=== PATIENT | male | born 1960 | race Caucasian/White ===

== ENCOUNTER 2016-08-31 09:27 | Day surgery (SDC) | payer BC ==
[2016-08-27 10:31] VITALS: BMI 29.6
[~2016-08-31 09:27] MED LIST: LACTATED RINGERS 1,000 ML IV SCH; LIDOCAINE 1% 20 ML VIAL (10MG/ML) FOR IV START INTRADERMA PRN
[2016-08-31 10:12] VITALS: RESP 18; TEMP 97.8
[2016-08-31 10:21] LABS: Glucose,Whole Blood 95 mg/dL (75-99)
[2016-08-31] MEDS ORDERED: PROPOFOL 10 MG/ML 20 ML VIAL IV ONE (10:43)
--- NOTE | 2016-08-31 11:22 | P.PCN ---
Date of Procedure: 08/31/16 Preoperative Diagnosis: Postoperative Diagnosis: Procedure(s) Performed: Procedure: Colonoscopy and polypectomy. Preoperative diagnosis: Screening for neoplasia, patient has history of polyps. Postoperative diagnosis: 1. Small polyp around the hepatic flexure snared but no large polyps or cancer. 2. Sigmoid diverticulosis with no evidence of acute diverticulitis or strictures. Preparation: HalfLytely prep. Sedation: Was provided by anesthesia. Brief clinical history: The patient is a 56-year-old male who is scheduled for this evaluation for screening for neoplasia age being his risk factor as well as history of polyps. His last exam was 3-1/2 to 4 years ago. At this time, he has no abdominal complaints, bleeding or anemia. Procedure: With the patient on his left lateral decubitus position and after informed consent and adequate sedation, the perianal area was inspected and it did not show any fissures or fistulas. There were no masses felt on digital rectal examination. The Olympus CFQ 160L video colonoscope was then inserted in the rectum in the usual fashion and advanced to the cecum. The mucosa appeared healthy. There was a very small polyp around the hepatic flexure which I snared and retrieved by suction but there were no large polyps or cancer. Several diverticular orifices were seen scattered in the sigmoid with no evidence of acute diverticulitis or strictures. I retroflexed the endoscope in the rectum before the endoscope was withdrawn. The patient tolerated the procedure well. Plan: The patient was reassured. Discussed dietary measures. He will follow up with you as planned and I recommended repeat exam in 5 years. Implants: Indications for Procedure: Operative Findings: Description of Procedure:
[2016-08-31 11:34] VITALS: BP 119/78; PULSE 56
== END 2016-08-31 11:43 | disposition home or self-care (01) ==
LOC: ORWHC2ENDO 09:27
DX: Z12.11 Encounter for screening for malignant neoplasm of colon (principal); D12.3 Benign neoplasm of transverse colon; K57.30 Diverticulosis of large intestine without perforation or abscess without bleeding; Z86.010 Personal history of colon polyps; E78.5 Hyperlipidemia, unspecified; M06.9 Rheumatoid arthritis, unspecified; Z85.46 Personal history of malignant neoplasm of prostate; Z79.899 Other long term (current) drug therapy; Z79.52 Long term (current) use of systemic steroids; Z88.2 Allergy status to sulfonamides
CPT/HCPCS: 88305; 45385; J2704

== ENCOUNTER → 2017-04-22 | Outpatient (CLI) | payer BC ==
--- NOTE | 2017-04-22 11:54 | XR ---
Right knee HISTORY: Right knee pain, strain 3 days prior 3 views of the right knee Bone mineralization and alignment are maintained. Marginal spurring and joint space loss is greatest at the medial compartment. Small ossific density also present at the medial compartment level. Suprap atellar increased density compatible with joint effusion, small ossific densities present at this loc ation. 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 No acute fracture or dislocation evident. Joint effusion.
== END | disposition home or self-care (01) ==
LOC: RADXRYALE 11:07
PROVIDERS: ATTEND Physician Assistant Medical
DX: M17.11 Unilateral primary osteoarthritis, right knee (principal)

== ENCOUNTER → 2018-06-14 | Outpatient (CLI) | payer BC ==
--- NOTE | 2018-06-15 07:20 | XR ---
EXAMINATION TYPE: XR ankle complete RT DATE OF EXAM: 06/14/2018 COMPARISON: NONE HISTORY: Pain TECHNIQUE: Frontal, lateral and oblique images of the right ankle are obtained. COMPARISON: None. FINDINGS: There is no acute fracture/dislocation evident. The joint spaces appear within normal mckay its. The overlying soft tissue appears unremarkable. IMPRESSION: There is no acute fracture or dislocation seen.
== END | disposition home or self-care (01) ==
LOC: RADXRYALE 16:36
PROVIDERS: ATTEND Family Medicine
DX: M25.571 Pain in right ankle and joints of right foot (principal)

== ENCOUNTER 2020-09-23 09:02 | Emergency (ER) | payer BC ==
[2020-09-23 09:19] VITALS: BP 125/82; PULSE 63; RESP 18; TEMP 98.1
--- NOTE | 2020-09-23 09:53 | ED ---
General Adult HPI - General Chief complaint: Upper Respiratory Infection Stated complaint: Covid+, wants to be seen for low temperature Time Seen by Provider: 09/23/20 09:36 Source: patient Mode of arrival: ambulatory Limitations: no limitations - Related Data Home Medications Medication Instructions Recorded Confirmed Celecoxib [CeleBREX] 200 mg PO DAILY 08/27/16 08/27/16 Lipitor 1 tab PO DAILY 08/27/16 Multivitamins, Thera [Multivitamin 1 tab PO DAILY 08/27/16 08/27/16 (formulary)] Reno-3 Fatty Acids/Fish Oil [Fish 1 each PO DAILY 08/27/16 08/27/16 Oil 1,000 mg Softgel] predniSONE 2.5 mg PO DAILY 08/27/16 08/27/16 Allergies Allergy/AdvReac Type Severity Reaction Status Date / Time Sulfa (Sulfonamide Allergy Unknown Verified 09/23/20 09:15 Antibiotics) Review of Systems ROS Statement: Those systems with pertinent positive or pertinent negative responses have been documented in the HPI. ROS Other: All systems not noted in ROS Statement are negative. Past Medical History Past Medical History: Cancer, Hyperlipidemia, Rheumatoid Arthritis (RA) Additional Past Medical History / Comment(s): hx of colon polyps, hx of prostate ca History of Any Multi-Drug Resistant Organisms: None Reported Past Surgical History: Prostate Surgery, Tonsillectomy Past Anesthesia/Blood Transfusion Reactions: No Reported Reaction Past Psychological History: No Psychological Hx Reported Smoking Status: Never smoker Past Alcohol Use History: Occasional Past Drug Use History: None Reported - Past Family History Father Family Medical History: Cancer Additional Family Medical History / Comment(s): prostate General Exam Limitations: no limitations Course Vital Signs 09/23/20 09:15 Temperature 98.1 F Pulse Rate 63 Respiratory 18 Rate Blood Pressure 125/82 O2 Sat by Pulse 95 Oximetry Disposition Clinical Impression: COVID Disposition: HOME SELF-CARE Condition: Good Instructions (If sedation given, give patient instructions): Coronavirus Disease 2019 (COVID-19) Is patient prescribed a controlled substance at d/c from ED?: No Referrals: Renny Rosas DO [Primary Care Provider] - 1-2 days Time of Disposition: 09:53
== END 2020-09-23 10:00 | disposition home or self-care (01) ==
LOC: EC 09:02
DX: U07.1 COVID-19 (principal); E78.5 Hyperlipidemia, unspecified; M06.9 Rheumatoid arthritis, unspecified
CPT/HCPCS: 99283

== ENCOUNTER 2022-06-17 10:40 | Day surgery (SDC) | payer BC ==
[~2022-06-17 10:40] MED LIST changes: -LIDOCAINE 1% 20 ML VIAL (10MG/ML) FOR IV START INTRADERMA PRN
[2022-06-17] MEDS ORDERED: LACTATED RINGERS 1,000 ML IV ONE (11:00)
[2022-06-17 11:12] LABS: Glucose,Whole Blood 98 mg/dL (70-110)
[2022-06-17 11:17] VITALS: TEMP 97.8
[2022-06-17] MEDS ORDERED: PROPOFOL 10 MG/ML 20 ML VIAL IV ONE (11:17)
--- NOTE | 2022-06-17 11:33 | P.PCN ---
Date of Procedure: 06/17/22 Procedure(s) Performed: BRIEF HISTORY: Patient is a 62-year-old pleasant white male scheduled for an elective colonoscopy as a part of evaluation of prior history of colon polyps. Last colonoscopy was 5 years ago and was noted to have an adenoma. PROCEDURE PERFORMED: Colonoscopy with snare polypectomy. PREOPERATIVE DIAGNOSIS: History of colon polyps. IV sedation per Anesthesia. PROCEDURE: After informed consent was obtained, the patient, was brought into the endoscopy unit. IV sedation was administered by Anesthesia under continuous monitoring. Digital rectal examination was normal. Initially the Olympus CF-160 flexible video colonoscope was then inserted in the rectum, gradually advanced i nto the cecum without any difficulty. Careful examination was performed as the scope was gradually being withdrawn. Ileocecal valve and the appendiceal orifice were visualized and appeared normal. Prep was excellent. Mucosa of the cecum, ascending colon, transverse colon, descending colon appeared normal. There are scattered sigmoid diverticulosis seen. In the distal sigmoid: There was a 5 mm polyp removed by snare polypectomy. Rest of the, sigmoid colon, and rectum appeared normal. Retroflexion was performed in the rectum and no lesions were seen. The patient tolerated the procedure well. IMPRESSION: 5 mm; sigmoid polyp status post polypectomy Scattered sigmoid diverticulosis RECOMMENDATIONS: Findings of this examination were discussed with the patient as well as his family. He was advised to with the biopsy results. If the biopsy results adenoma he can have a repeat colonoscopy in 5 years..
[2022-06-17 11:39] VITALS: PULSE 70; RESP 18
[2022-06-17 11:55] VITALS: BP 136/93
== END 2022-06-17 12:03 | disposition home or self-care (01) ==
LOC: ORWHC2ENDO 10:40
PROVIDERS: ATTEND Internal Medicine Gastroenterology
DX: Z12.11 Encounter for screening for malignant neoplasm of colon (principal); K63.5 Polyp of colon; K57.30 Diverticulosis of large intestine without perforation or abscess without bleeding; E78.5 Hyperlipidemia, unspecified; M06.9 Rheumatoid arthritis, unspecified; Z85.46 Personal history of malignant neoplasm of prostate; Z86.010 Personal history of colon polyps; Z88.2 Allergy status to sulfonamides; Z79.899 Other long term (current) drug therapy
CPT/HCPCS: 88305; 45385; J2704